=== PATIENT | male | born 1965 | race Caucasian/White ===

== ENCOUNTER 2020-04-19 14:23 | Inpatient (IN) | payer MEDICAID, OTHER ==
[~2020-04-19] VITALS: Ht 177.8 cm; Wt 113.2 kg
[2020-04-19 15:17] LABS: BASO # 0.1 x10^3/uL (0.0-0.2); BASO % 1 % (0-3); EOS # 0.3 x10^3/uL (0.0-0.7); EOS % 3 % (0-3); HEMATOCRIT 45.8 % (39.0-53.0); HEMOGLOBIN 14.7 g/dL (13.0-17.5); LYMPH # 1.5 x10^3/uL (1.0-4.8); LYMPH % 18 % (24-48); MEAN CORPUSCULAR HEMOGLOBIN 27 pg (25-35); MEAN CORPUSCULAR HGB CONC 32 g/dL (31-37); MEAN CORPUSCULAR VOLUME 85 fL (79-100); MONO % 12 % (0-9); NEUT # 5.6 x10^3/uL (1.8-7.7); NEUT % 66 % (31-73); PLATELET COUNT 300 x10^3/uL (140-400); RED BLOOD COUNT 5.42 x10^6/uL (4.30-5.70); RED CELL DISTRIBUTION WIDTH 15.2 % (11.5-14.5); WHITE BLOOD COUNT 8.5 x10^3/uL (4.0-11.0)
--- NOTE | 2020-04-19 15:19 | RAD ---
AP chest. HISTORY: Short of air AP view was taken of the chest. Heart is enlarged. There is no effusion. There is linear atelectasis in the left midlung. There are no other confluent infiltrates. IMPRESSION: 1. Cardiomegaly. 2. Linear atelectasis. 3. No other infiltrates. Electronically signed by: Horacio David MD (04/19/2020 3:16 PM) [facility]
[2020-04-19 15:26] LABS: CALCIUM 9.1 mg/dL (8.5-10.1); CREATININE 1.1 mg/dL (0.7-1.3); GFR 69.8; POTASSIUM 4.3 mmol/L (3.5-5.1)
[2020-04-19 15:33] LABS: ALBUMIN 3.6 g/dL (3.4-5.0); ALBUMIN/GLOBULIN RATIO 0.8 (1.0-1.7); MAGNESIUM 2.1 mg/dL (1.8-2.4); TOTAL BILIRUBIN 0.6 mg/dL (0.2-1.0); TOTAL PROTEIN 8.2 g/dL (6.4-8.2)
--- NOTE | 2020-04-19 15:33 | PHYS DOC ---
Past Medical History Past Medical History: Hypertension Past Surgical History: Other Additional Past Surgical Histo: UTI SURGERY, Smoking Status: Current Every Day Smoker Alcohol Use: Occasionally General Adult EDM: Chief Complaint: LOWER EXTREMITY SWELLING HPI: HPI: Patient is a 54 year old male with history of hypertension presented to ER today for evaluation of bilateral lower extremity swelling that spreading up to his inner thigh and abdomen area over 10 days. Patient complained of trouble breathing when he laid down flat on his back, symptom is exacerbated by exertion or physical activity. He could not sleep in his bed because of shortness of air. Patient denies any cough or fever. Patient denies any chest pain, no history of heart disease. Patient denies any abdominal pain, no nausea vomiting. Patient denies history of blood clot disorder. Patient denies any recent travel or operation. Patient denies being exposed to anybody who tested positive for COVID-19. Review of Systems: Review of Systems: Constitutional: Denies fever or chills. [] Eyes: Denies change in visual acuity. [] HENT: Denies nasal congestion or sore throat. [] Respiratory: Denies cough, positive for shortness of breath. [] Cardiovascular: Denies chest pain or edema. [] GI: Denies abdominal pain, nausea, vomiting, bloody stools or diarrhea. Positive for abdominal wall edema : Denies dysuria. [] Musculoskeletal: Denies back pain or joint pain. Positive for bilateral lower extremity swelling Integument: Denies rash. [] Neurologic: Denies headache, focal weakness or sensory changes. [] Endocrine: Denies polyuria or polydipsia. [] Lymphatic: Denies swollen glands. [] Psychiatric: Denies depression or anxiety. [] Heart Score: Risk Factors: Risk Factors: DM, Current or recent (<one month) smoker, HTN, HLP, family history of CAD, obesity. Risk Scores: Score 0 - 3: 2.5% MACE over next 6 weeks - Discharge Home Score 4 - 6: 20.3% MACE over next 6 weeks - Admit for Clinical Observation Score 7 - 10: 72.7% MACE over next 6 weeks - Early Invasive Strategies Allergies: Allergies: Allergies Coded Allergies Type Severity Reaction Last Updated Verified lisinopril Allergy Severe SWELLING 04/19/20 Yes Physical Exam: PE: Constitutional: Well developed, well nourished, no acute distress, non-toxic appearance. [] HENT: Normocephalic, atraumatic, bilateral external ears normal, oropharynx moist, no oral exudates, nose normal. [] Eyes: PERRLA, EOMI, conjunctiva normal, no discharge. [] Neck: Normal range of motion, no tenderness, supple, no stridor. [] Cardiovascular:Heart rate regular rhythm, no murmur [] Lungs & Thorax: Bilateral breath sounds with rales at lung bases, tachypnic Abdomen: Bowel sounds normal, soft, no tenderness, no masses, no pulsatile masses. Abdominal wall edema diffusely Skin: Warm, dry, no erythema, no rash. [] Back: No tenderness, no CVA tenderness. [] Extremities: No tenderness, no cyanosis, no clubbing, ROM intact, bilateral lower extremity edema, pitting edema, 3+ Neurologic: Alert and oriented X 3, normal motor function, normal sensory function, no focal deficits noted. [] Psychologic: Affect normal, judgement normal, mood normal. [] Current Patient Data: Labs: Laboratory Tests Test 04/19/20 14:54 Sodium Level 141 mmol/L (136-145) Potassium Level 4.3 mmol/L (3.5-5.1) Chloride Level 106 mmol/L (98-107) Carbon Dioxide Level 25 mmol/L (21-32) Anion Gap 10 (6-14) Blood Urea Nitrogen 19 mg/dL (8-26) Creatinine 1.1 mg/dL (0.7-1.3) Estimated GFR (Cockcroft-Gault) 69.8 BUN/Creatinine Ratio 17 (6-20) Glucose Level 119 mg/dL (70-99) H Calcium Level 9.1 mg/dL (8.5-10.1) Magnesium Level Pending Total Bilirubin Pending Aspartate Amino Transferase (AST) Pending Alanine Aminotransferase (ALT) Pending Alkaline Phosphatase Pending Total Protein Pending Albumin Pending Albumin/Globulin Ratio Pending Laboratory Tests 04/19/20 14:54 Vital Signs: Vital Signs Date Time Temp Pulse Resp B/P (MAP) Pulse Ox O2 Delivery O2 Flow Rate FiO2 04/19/20 14:38 98.3 100 24 176/115 (135) 98 Room Air 98.3 EKG: EKG: EKG was done at 1513, heart rate of 94 bpm, sinus rhythm, no ST segment elevation. Radiology/Procedures: Radiology/Procedures: [facility] [address] [place] [address] IMAGING REPORT Signed PATIENT: FRANKIE SCOTT ACCOUNT: [id number] : 1965 LOCATION: ER AGE: 54 SEX: M EXAM STATUS: PRE ER ORD. PHYSICIAN: SUNNY COURTNEY DO REASON: soa PROCEDURE: CHEST AP ONLY AP chest. HISTORY: Short of air AP view was taken of the chest. Heart is enlarged. There is no effusion. There is linear atelectasis in the left midlung. There are no other confluent infiltrates. IMPRESSION: 1. Cardiomegaly. 2. Linear atelectasis. 3. No other infiltrates. Electronically signed by: Horacio Davdi MD (04/19/2020 3:16 PM) [facility] DICTATED and SIGNED BY: HORACIO DAVID MD DATE: 04/19/20 [id number] [place] [address] IMAGING REPORT Signed PATIENT: FRANKIE SCOTT ACCOUNT: [id number] : 1965 LOCATION: ER AGE: 54 SEX: M EXAM STATUS: REG ER ORD. PHYSICIAN: SUNNY COURTNEY DO REASON: legs swelling and pain PROCEDURE: VENOUS LOWER EXT BILATERAL Ultrasound venous system of the legs 04/19/2020. Reason for exam: Pain and swelling. Color Doppler and spectral waveform analysis was performed along with real-time grayscale technique. The deep veins of both lower extremity show normal compressibility and normal Doppler flow and augmentation of flow extending from the common femoral segment to the popliteal segment. The visualized calf veins also appear normal. IMPRESSION: No evidence of DVT. Electronically signed by: Edu Celeste Jr., MD (04/19/2020 5:21 PM) [facility] DICTATED and SIGNED BY: EDU CELESTE Jr, MD DATE: 04/19/20 1451 Course & Med Decision Making: Course & Med Decision Making Pertinent Labs and Imaging studies reviewed. (See chart for details) Patient is a 54-year-old male who presented to ER due to bilateral lower extremity swelling that spread to her abdomen area, having trouble breathing with exertion, not able to sleep in his bed due to having trouble breathing. Patient is suspected to have acute pulmonary edema, his oxygen saturation is about 92% on room air tachypneic, patient was given 40 mg Lasix IV, he had been diuresis well in the ER but his oxygen saturation is still low in the 92-94 % on room air. Patient will need to be admitted to hospital for cardiology evaluation with echocardiogram. Discussed with Dr. Salinas who agreed to admit the patient. Dragon Disclaimer: Dragon Disclaimer: This electronic medical record was generated, in whole or in part, using a voice recognition dictation system. Departure Departure Impression: Primary Impression: Anasarca Additional Impression: Acute dyspnea Disposition: ADMITTED INPATIENT Admitting Physician: CRYSTAL (Dr. Villatoro) Condition: IMPROVED Justicifation of Admission Dx: Justifications for Admission: Justification of Admission Dx: N/A SUNNY COURTNEY DO Apr 19, 2020 15:33
[2020-04-19 15:43] LABS: PROTHROMBIN TIME PATIENT 14.7 SEC (11.7-14.0)
[2020-04-19] MEDS ORDERED: FUROSEMIDE 40 MG/4 ML VIAL. IVP ONE (16:00)
--- NOTE | 2020-04-19 17:23 | RAD ---
Ultrasound venous system of the legs 04/19/2020. Reason for exam: Pain and swelling. Color Doppler and spectral waveform analysis was performed along with real-time grayscale technique. The deep veins of both lower extremity show normal compressibility and normal Doppler flow and augmentation of flow extending from the common femoral segment to the popliteal segment. The visualized calf veins also appear normal. IMPRESSION: No evidence of DVT. Electronically signed by: Nicholas Celeste Jr., MD (04/19/2020 5:21 PM) [facility]
[2020-04-19] MEDS ORDERED: ONDANSETRON PF 4 MG/2 ML VIAL. IV PRN (18:00)
[2020-04-19 18:35] VITALS: BP 166/124
[2020-04-19] MEDS ORDERED: ASPI325T8 PO (18:47)
[2020-04-19] MEDS ORDERED: LOSA-73 PO (18:47)
[2020-04-19 19:00] VITALS: BP 162/102
[2020-04-19] MEDS ORDERED: METO-247 PO (22:49)
[2020-04-19 23:00] VITALS: BP 160/112
[2020-04-20] MEDS: ZOLPIDEM 5 MG TABLET. PO PRN ×2 (00:36→21:12)
[2020-04-20 03:00] VITALS: BP 168/113
[2020-04-20 07:00] VITALS: BP 156/116
[2020-04-20] MEDS ORDERED: ONDANSETRON PF 4 MG/2 ML VIAL. IV PRN (07:45)
--- NOTE | 2020-04-20 07:45 | PDOC1 ---
History and Physical Date of Admission Date of Admission DATE: 04/20/20 TIME: 07:33 Identification/Chief Complaint Chief Complaint Leg swelling Source Source: Patient History of Present Illness History of Present Illness Mr Zuñiga is a 54 yo M w/ PMHx HTN who presented to ER due to bilateral lower extremity swelling that spread to his abdominal area, having trouble breathing with exertion, not able to sleep in his bed due to having trouble breathing. Symptoms are progressive over the past 10 days prior to ED presentation. Patient is suspected to have acute pulmonary edema, his oxygen saturation is about 92% on room air tachypneic, patient was given 40 mg Lasix IV, he had been diuresis well in the ER but his oxygen saturation is still low in the 92-94 % on room air. Labs significant for INR 1.2, glucose 119, BNP 1171, troponin 0 0.033. Blood pressure 136/125. EKG appears to have heart rate of 94 bpm, sinus rhythm, no ST segment elevation. CXR revealed cardiomegaly and bilateral atelectasis, bilateral venous Dopplers did not reveal any DVT. On further review his significant other notes that he did have a cardiology e valuation at this time in 2019 with [employer] through [facility] and had an echocardiogram at [facility] that showed a PFO with [id number] shunt, no no active shunting on bubble study and known reduced ejection fraction. He was given a prescription for Chantix at that time and metoprolol 100 mg XL and losartan 50 mg daily and was planning on follow-up in the near future. Patient admitted to hospital for cardiology evaluation and further treatment. Past Medical History Cardiovascular: HTN GI: GERD Past Surgical History Past Surgical History: Other (Urologic surgery) Family History Family History: Coronary Artery Disease, High Cholestrol, Hypertension Social History Smoke: 1 pack per day ALCOHOL: rare Drugs: None Current Problem List Problem List Problems Medical Problems: (1) Acute dyspnea Status: Acute (2) Anasarca Status: Acute Current Medications Current Medications Current Medications Furosemide (Lasix) 40 mg 1X ONCE IVP Last administered on 04/19/20at 16:00; Start 04/19/20 at 16:00; Stop 04/19/20 at 16:01; Status DC Ondansetron HCl (Zofran) 4 mg PRN Q8HRS PRN IV NAUSEA/VOMITING; Start 04/19/20 at 18:00; Stop 04/20/20 at 17:59 Zolpidem Tartrate (Ambien) 5 mg PRN QHS PRN PO INSOMNIA Last administered on 04/20/20at 00:36; Start 04/20/20 at 00:30 Active Scripts Active Reported Metoprolol Succinate ( Xl ) (Metoprolol Succinate) 100 Mg Tab.er.24h 1 Tab PO DAILY Aspirin 325 Mg Tablet 1 Tab PO DAILY Losartan Potassium 50 Mg Tablet 100 Mg PO DAILY Allergies Allergies: Coded Allergies: lisinopril (Verified Allergy, Severe, SWELLING, 04/19/20) ROS General: YES: Fatigue, Malaise; No: Chills, Night Sweats, Appetite, Other PSYCHOLOGICAL ROS: YES: Anxiety; No: Behavioral Disorder, Concentration difficultie, Decreased libido, Depression, Disorientation, Hallucinations, Hostility, Irritablity, Memory difficulties, Mood Swings, Obsessive thoughts, Physical abuse, Sexual abuse, Sleep disturbances, Suicidal ideation, Other Eyes: No Blurry vision, No Decreased vision, No Double vision, No Dry eyes, No Excessive tearing, No Eye Pain, No Itchy Eyes, No Loss of vision, No Photophobia, No Scotomata, No Uses contacts, No Uses glasses, No Other HEENT: No: Heacaches, Visual Changes, Hearing change, Nasal congestion, Nasal discharge, Oral lesions, Sinus pain, Sore Throat, Epistaxis, Sneezing, Snoring, Tinnitus, Vertigo, Vocal changes, Other ALLERGY AND IMMUNOLOGY: No: Hives, Insect Bite Sensitivity, Itchy/Watery Eyes, Nasal Congestion, Post Nasal Drip, Seasonal Allergies, Other Hematological and Lymphatic: No: Bleeding Problems, Blood Clots, Blood Transfusions, Brusing, Night Sweats, Pallor, Swollen Lymph Nodes, Other ENDOCRINE: No: Breast Changes, Galactorrhea, Hair Pattern Changes, Hot Flashes, Malaise/lethargy, Mood Swings, Palpitations, Polydipsia/polyuria, Skin Changes, Temperature Intolerance, Unexpected Weight Changes, Other Respiratory: YES: Orthopnea, Shortness of breath, SOB with excertion, Tachypnea ; No: Cough, Hemoptysis, Pleuritic Pain, Sputum Changes, Stridor, Wheezing, Other Cardiovascular: yes Orthopnea, yes Paroxysmal Noc. Dyspnea, yes Edema; No Chest Pain, No Palpitations, No Lt Headedness, No Other Gastrointestinal: No Nausea, No Vomiting, No Abdominal Pain, No Diarrhea, No Constipation, No Melena, No Hematochezia, No Other Genitourinary: No Dysuria, No Frequency, No Incontinence, No Hematuria, No Retention, No Discharge, No Urgency, No Pain, No Flank Pain, No Other, No , No , No , No , No , No , No Musculoskeletal: No Gait Disturbance, No Joint Pain, No Joint Stiffness, No Joint Swelling, No Muscle Pain, No Muscular Weakness, No Pain In:, No Swelling In:, No Other Neurological: No Behavorial Changes, No Bowel/Bladder ControlChng, No Confusion, No Dizziness, No Gait Disturbance, No Headaches, No Impaired Coord/balance, No Memory Loss, No Numbness/Tingling, No Seizures, No Speech Problems, No Tremors, No Visual Changes, No Weakness, No Other Skin: No Dry Skin, No Eczema, No Hair Changes, No Lumps, No Mole Changes, No Mottling, No Nail Changes, No Pruritus, No Rash, No Skin Lesion Changes, No Other, No Acne Physical Exam General: Alert, Oriented X3, Cooperative, mild distress HEENT: Atraumatic, PERRLA, EOMI, Mucous membr. moist/pink Lungs: Normal air movement, Other (bibasilar crackles) Heart: S1S2, RRR, no thrills, no rubs, no gallops, no murmurs Abdomen: Normal bowel sounds, Soft, No tenderness, No hepatosplenomegaly, No masses Rectal Exam: not examined Extremities: No clubbing, No cyanosis, Normal pulses, No tenderness/swelling, Other (2+ edema) Skin: No rashes, No breakdown, No significant lesion Neuro: Normal gait, Normal speech, Strength at 5/5 X4 ext, Normal tone, Sensation intact, Cranial nerves 3-12 NL, Reflexes 2+ Psych/Mental Status: Mental status NL, Mood NL Vitals Vitals Vital Signs Date Time Temp Pulse Resp B/P (MAP) Pulse Ox O2 Delivery O2 Flow Rate FiO2 04/20/20 07:00 98.1 103 18 156/116 (129) 97 Room Air 98.1 Labs Labs Laboratory Tests Test 04/19/20 14:54 White Blood Count 8.5 x10^3/uL (4.0-11.0) Red Blood Count 5.42 x10^6/uL (4.30-5.70) Hemoglobin 14.7 g/dL (13.0-17.5) Hematocrit 45.8 % (39.0-53.0) Mean Corpuscular Volume 85 fL (79-100) Mean Corpuscular Hemoglobin 27 pg (25-35) Mean Corpuscular Hemoglobin Concent 32 g/dL (31-37) Red Cell Distribution Width 15.2 % (11.5-14.5) Platelet Count 300 x10^3/uL (140-400) Neutrophils (%) (Auto) 66 % (31-73) Lymphocytes (%) (Auto) 18 % (24-48) Monocytes (%) (Auto) 12 % (0-9) Eosinophils (%) (Auto) 3 % (0-3) Basophils (%) (Auto) 1 % (0-3) Neutrophils # (Auto) 5.6 x10^3/uL (1.8-7.7) Lymphocytes # (Auto) 1.5 x10^3/uL (1.0-4.8) Monocytes # (Auto) 1.0 x10^3/uL (0.0-1.1) Eosinophils # (Auto) 0.3 x10^3/uL (0.0-0.7) Basophils # (Auto) 0.1 x10^3/uL (0.0-0.2) Prothrombin Time 14.7 SEC (11.7-14.0) Prothromb Time International Ratio 1.2 (0.8-1.1) Activated Partial Thromboplast Time 31 SEC (24-38) Sodium Level 141 mmol/L (136-145) Potassium Level 4.3 mmol/L (3.5-5.1) Chloride Level 106 mmol/L (98-107) Carbon Dioxide Level 25 mmol/L (21-32) Anion Gap 10 (6-14) Blood Urea Nitrogen 19 mg/dL (8-26) Creatinine 1.1 mg/dL (0.7-1.3) Estimated GFR (Cockcroft-Gault) 69.8 BUN/Creatinine Ratio 17 (6-20) Glucose Level 119 mg/dL (70-99) Calcium Level 9.1 mg/dL (8.5-10.1) Magnesium Level 2.1 mg/dL (1.8-2.4) Total Bilirubin 0.6 mg/dL (0.2-1.0) Aspartate Amino Transf (AST/SGOT) 48 U/L (15-37) Alanine Aminotransferase (ALT/SGPT) 39 U/L (16-63) Alkaline Phosphatase 85 U/L (46-116) Troponin I Quantitative 0.033 ng/mL (0.000-0.055) GD-Ygr-M-Type Natriuretic Peptide 1171 pg/mL (0-124) Total Protein 8.2 g/dL (6.4-8.2) Albumin 3.6 g/dL (3.4-5.0) Albumin/Globulin Ratio 0.8 (1.0-1.7) Laboratory Tests Test 04/19/20 14:54 White Blood Count 8.5 x10^3/uL (4.0-11.0) Red Blood Count 5.42 x10^6/uL (4.30-5.70) Hemoglobin 14.7 g/dL (13.0-17.5) Hematocrit 45.8 % (39.0-53.0) Mean Corpuscular Volume 85 fL (79-100) Mean Corpuscular Hemoglobin 27 pg (25-35) Mean Corpuscular Hemoglobin Concent 32 g/dL (31-37) Red Cell Distribution Width 15.2 % (11.5-14.5) Platelet Count 300 x10^3/uL (140-400) Neutrophils (%) (Auto) 66 % (31-73) Lymphocytes (%) (Auto) 18 % (24-48) Monocytes (%) (Auto) 12 % (0-9) Eosinophils (%) (Auto) 3 % (0-3) Basophils (%) (Auto) 1 % (0-3) Neutrophils # (Auto) 5.6 x10^3/uL (1.8-7.7) Lymphocytes # (Auto) 1.5 x10^3/uL (1.0-4.8) Monocytes # (Auto) 1.0 x10^3/uL (0.0-1.1) Eosinophils # (Auto) 0.3 x10^3/uL (0.0-0.7) Basophils # (Auto) 0.1 x10^3/uL (0.0-0.2) Prothrombin Time 14.7 SEC (11.7-14.0) Prothromb Time International Ratio 1.2 (0.8-1.1) Activated Partial Thromboplast Time 31 SEC (24-38) Sodium Level 141 mmol/L (136-145) Potassium Level 4.3 mmol/L (3.5-5.1) Chloride Level 106 mmol/L (98-107) Carbon Dioxide Level 25 mmol/L (21-32) Anion Gap 10 (6-14) Blood Urea Nitrogen 19 mg/dL (8-26) Creatinine 1.1 mg/dL (0.7-1.3) Estimated GFR (Cockcroft-Gault) 69.8 BUN/Creatinine Ratio 17 (6-20) Glucose Level 119 mg/dL (70-99) Calcium Level 9.1 mg/dL (8.5-10.1) Magnesium Level 2.1 mg/dL (1.8-2.4) Total Bilirubin 0.6 mg/dL (0.2-1.0) Aspartate Amino Transf (AST/SGOT) 48 U/L (15-37) Alanine Aminotransferase (ALT/SGPT) 39 U/L (16-63) Alkaline Phosphatase 85 U/L (46-116) Troponin I Quantitative 0.033 ng/mL (0.000-0.055) BI-Mmg-C-Type Natriuretic Peptide 1171 pg/mL (0-124) Total Protein 8.2 g/dL (6.4-8.2) Albumin 3.6 g/dL (3.4-5.0) Albumin/Globulin Ratio 0.8 (1.0-1.7) Images Images CXR AP view: Heart is enlarged. There is no effusion. There is linear atelectasis in the left midlung. There are no other confluent infiltrates. IMPRESSION: 1. Cardiomegaly. 2. Linear atelectasis. 3. No other infiltrates. Ultrasound venous system of the legs 04/19/2020. Color Doppler and spectral waveform analysis was performed along with real-time grayscale technique. The deep veins of both lower extremity show normal compressibility and normal Doppler flow and augmentation of flow extending from the common femoral segment to the popliteal segment. The visualized calf veins also appear normal. IMPRESSION: No evidence of DVT. VTE Prophylaxis Ordered VTE Prophylaxis Devices: Yes VTE Pharmacological Prophylaxi: Yes Assessment/Plan Assessment/Plan A/P: Lower extremity edema multi-factorial possibly due to acute diastolic CHF, will consult cardiology continue IV Lasix continue beta-jayda check lipids HTN emergency - with acute CHF, restart home medications Dyspnea with acute CHF - improved after initiating IV diuresis Mild troponin elevation - 0.059. Likely type II demand ischemia. Will trend COPD - on prn albuterol Tobacco abuse - previously given chantix, he is trying to quit smoking FEN - Cardiac diet PPX - lovenox FULL CODE Dispo - inpatient Justicifation of Admission Dx: Justifications for Admission: Justification of Admission Dx: N/A SOURAV BAUTISTA MD Apr 20, 2020 07:45
[2020-04-20] MEDS: FUROSEMIDE 40 MG/4 ML VIAL. IVP SCH ×2 (08:02→15:39)
[2020-04-20] MEDS: ASPIRIN 325 MG TABLET PO SCH (08:08)
[2020-04-20] MEDS: METOPROLOL SUCC 24HR ER 100 MG TAB.ER.24H. PO SCH (08:09)
[2020-04-20] MEDS: LOSARTAN POTASSIUM 50 MG TABLET. PO SCH (08:09)
[2020-04-20] MEDS: ENOXAPARIN 40 MG/0.4 ML SYRINGE. SQ SCH (08:11)
[2020-04-20 08:55] LABS: ALBUMIN 3.6 g/dL (3.4-5.0); ALBUMIN/GLOBULIN RATIO 0.8 (1.0-1.7); CALCIUM 9.3 mg/dL (8.5-10.1); CREATININE 1.1 mg/dL (0.7-1.3); GFR 69.8; POTASSIUM 3.7 mmol/L (3.5-5.1); TOTAL BILIRUBIN 0.9 mg/dL (0.2-1.0)
[2020-04-20 09:34] LABS: CHOLESTEROL/HDL RATIO 4.7
--- NOTE | 2020-04-20 09:40 | NUR ---
Patient's troponin went from 0.033 to 0.057. [facility] cardiology [employer] notified at 911.
--- NOTE | 2020-04-20 10:42 | PDOC2 ---
CARDIAC CONSULT DATE OF CONSULT Date of Consult DATE: 04/20/20 TIME: 10:33 REASON FOR CONSULT Reason for Consult: CHF REFERRING PHYSICIAN Referring Physician: Dr. Flores SOURCE Source: Chart review, Patient HISTORY OF PRESENT ILLNESS HISTORY OF PRESENT ILLNESS This is a 54 yo male who presented secondary to fluid retention, shortness of breath. Patient reports shortness of breath and lower extremity edema has been present for the last couple of weeks. Progressively worsening. Associated with orthopnea. No dizziness, diaphoresis, or chest pain. No recent illness/fevers. Is feeling feeling s/p diuresis. PAST MEDICAL HISTORY Cardiovascular: HTN Pulmonary: COPD Musculoskeletal: Osteoarthritis PAST SURGICAL HISTORY Past Surgical History: No pertinent history FAMILY HISTORY Family History: Coronary Artery Disease (both mother and father ), Diabetes, Heart Disease SOCIAL HISTORY Smoke: 1 pack per day ALCOHOL: social Drugs: None Lives: with Family CURRENT MEDICATIONS CURRENT MEDICATIONS Current Medications Medications (Trade) Dose Ordered Sig/Ariana Route PRN Reason Start Time Stop Time Status Last Admin Dose Admin Furosemide (Lasix) 40 mg 1X ONCE IVP 04/19/20 16:00 04/19/20 16:01 DC 04/19/20 16:00 Zolpidem Tartrate (Ambien) 5 mg PRN QHS PRN PO INSOMNIA 04/20/20 00:30 04/20/20 00:36 Aspirin (David Aspirin) 325 mg DAILY PO 04/20/20 09:00 04/20/20 08:08 Losartan Potassium (Cozaar) 100 mg DAILY PO 04/20/20 09:00 04/20/20 08:09 Metoprolol Succinate (Toprol Xl) 100 mg DAILY PO 04/20/20 09:00 04/20/20 08:09 Furosemide (Lasix) 40 mg BID92 IVP 04/20/20 09:00 04/20/20 14:01 04/20/20 08:02 Enoxaparin Sodium (Lovenox 40mg Syringe) 40 mg Q24H SQ 04/20/20 08:00 04/20/20 08:11 ALLERGIES ALLERGIES: Coded Allergies: lisinopril (Verified Allergy, Severe, SWELLING, 04/19/20) ROS Review of System 14 point ROS conducted with pertinent positives noted above in HPI PHYSICAL EXAM General: Alert, Oriented X3, Cooperative, No acute distress HEENT: Atraumatic, Mucous membr. moist/pink Lungs: Other (bibasilar crackles ) Heart: Regular rate Abdomen: Soft, Other (ascites ) Extremities: Other (2+ bilateral LE edema ) Skin: No significant lesion Neuro: Normal speech, Sensation intact Psych/Mental Status: Mental status NL, Mood NL MUSCULOSKELETAL: No deformity VITALS/I&O VITALS/I&O: Vital Signs Date Time Temp Pulse Resp B/P (MAP) Pulse Ox O2 Delivery O2 Flow Rate FiO2 04/20/20 08:09 103 156/116 04/20/20 08:00 Nasal Cannula 2.0 04/20/20 07:00 98.1 18 97 98.1 I & O 04/19/20 04/19/20 04/20/20 15:00 23:00 07:00 Intake Total 200 ml Output Total 1750 ml 700 ml Balance -1750 ml -500 ml LABS Lab: Laboratory Tests Test 04/19/20 14:54 04/20/20 08:10 White Blood Count 8.5 x10^3/uL (4.0-11.0) Red Blood Count 5.42 x10^6/uL (4.30-5.70) Hemoglobin 14.7 g/dL (13.0-17.5) Hematocrit 45.8 % (39.0-53.0) Mean Corpuscular Volume 85 fL (79-100) Mean Corpuscular Hemoglobin 27 pg (25-35) Mean Corpuscular Hemoglobin Concent 32 g/dL (31-37) Red Cell Distribution Width 15.2 % (11.5-14.5) H Platelet Count 300 x10^3/uL (140-400) Neutrophils (%) (Auto) 66 % (31-73) Lymphocytes (%) (Auto) 18 % (24-48) L Monocytes (%) (Auto) 12 % (0-9) H Eosinophils (%) (Auto) 3 % (0-3) Basophils (%) (Auto) 1 % (0-3) Neutrophils # (Auto) 5.6 x10^3/uL (1.8-7.7) Lymphocytes # (Auto) 1.5 x10^3/uL (1.0-4.8) Monocytes # (Auto) 1.0 x10^3/uL (0.0-1.1) Eosinophils # (Auto) 0.3 x10^3/uL (0.0-0.7) Basophils # (Auto) 0.1 x10^3/uL (0.0-0.2) Prothrombin Time 14.7 SEC (11.7-14.0) H Prothrombin Time INR 1.2 (0.8-1.1) H Activated Partial Thromboplast Time 31 SEC (24-38) Sodium Level 141 mmol/L (136-145) 142 mmol/L (136-145) Potassium Level 4.3 mmol/L (3.5-5.1) 3.7 mmol/L (3.5-5.1) Chloride Level 106 mmol/L (98-107) 104 mmol/L (98-107) Carbon Dioxide Level 25 mmol/L (21-32) 27 mmol/L (21-32) Anion Gap 10 (6-14) 11 (6-14) Blood Urea Nitrogen 19 mg/dL (8-26) 21 mg/dL (8-26) Creatinine 1.1 mg/dL (0.7-1.3) 1.1 mg/dL (0.7-1.3) Estimated GFR (Cockcroft-Gault) 69.8 69.8 BUN/Creatinine Ratio 17 (6-20) 19 (6-20) Glucose Level 119 mg/dL (70-99) H 113 mg/dL (70-99) H Calcium Level 9.1 mg/dL (8.5-10.1) 9.3 mg/dL (8.5-10.1) Magnesium Level 2.1 mg/dL (1.8-2.4) Total Bilirubin 0.6 mg/dL (0.2-1.0) 0.9 mg/dL (0.2-1.0) Aspartate Amino Transferase (AST) 48 U/L (15-37) H 36 U/L (15-37) Alanine Aminotransferase (ALT) 39 U/L (16-63) 31 U/L (16-63) Alkaline Phosphatase 85 U/L (46-116) 77 U/L (46-116) Troponin I Quantitative 0.033 ng/mL (0.000-0.055) 0.057 ng/mL (0.000-0.055) TF-Zfk-M-Type Natriuretic Peptide 1171 pg/mL (0-124) H Total Protein 8.2 g/dL (6.4-8.2) 8.0 g/dL (6.4-8.2) Albumin 3.6 g/dL (3.4-5.0) 3.6 g/dL (3.4-5.0) Albumin/Globulin Ratio 0.8 (1.0-1.7) L 0.8 (1.0-1.7) L Triglycerides Level 65 mg/dL (0-150) Cholesterol Level 127 mg/dL (0-200) LDL Cholesterol, Calculated 87 mg/dL (0-100) VLDL Cholesterol, Calculated 13 mg/dL (0-40) Non-HDL Cholesterol Calculated 100 mg/dL (0-129) HDL Cholesterol 27 mg/dL (40-60) L Cholesterol/HDL Ratio 4.7 Thyroid Stimulating Hormone (TSH) 3.595 uIU/mL (0.358-3.74) Laboratory Tests 04/19/20 14:54 Laboratory Tests 04/19/20 14:54 04/20/20 08:10 ASSESSMENT/PLAN ASSESSMENT/PLAN 1. Acute respiratory failure with acute CHF 2. Acute on chronic possibly combined systolic/diastolic CHF 3. Mild troponin elevation; highest 0.059. Most probably type II, demand ischemia. CP free 4. Hypertension 5. COPD 6. Tobaccoism; discussed/encouraged cessation Recommends Diuresis with monitoring of renal function Trend troponin Echo to assess LV systolic function ASA Lipids, TSH Will need further ischemic evaluation. Outpatient vs inpatient pending echo results Supportive care RAZ SILVERIO APRN Apr 20, 2020 10:42
[2020-04-20 11:00] VITALS: BP 153/105
--- NOTE | 2020-04-20 11:59 | NUR ---
SS following for discharge planning. SS reviewed pt chart and discussed with pt RN. Pt is from home and is currently on room air. ECHO ordered. Pt on IV Lasix. SS will continue to follow for discharge planning.
[2020-04-20] MEDS ORDERED: VARE0.5T PO (13:45)
[2020-04-20] MEDS ORDERED: MULT-245 PO (13:45)
[2020-04-20] MEDS ORDERED: PANT40TA77 PO (13:45)
[2020-04-20 15:00] VITALS: BP 135/98
[2020-04-20] MEDS ORDERED: PERFLUTREN PROTEIN-A MICROSPHR 0.22 MG/ML 3 ML VIAL. IV ONE ×2 (15:01→16:00)
--- NOTE | 2020-04-20 15:23 | EKG ---
[facility] [address] [place] [address] Test Date: 2020-04-19 Test Time: 15:13:18 Pat Name: FRANKIE SCOTT Department: Room: Gender: M [employer]: : 1965 Requested By: SUNNY COURTNEY Order Number: [id number] Reading MD: Measurements Intervals [place] Rate: 94 P: 49 OK: 210 QRS: 73 QRSD: 102 T: 55 QT: 394 QTc: 499 Interpretive Statements SINUS ARRHYTHMIA PROLONGED OK INTERVAL LEFT ATRIAL ABNORMALITY LOW LIMB LEAD VOLTAGE PROLONGED QT ABNORMAL ECG RI6.01 No previous ECG available for comparison
--- NOTE | 2020-04-20 16:57 | NUR ---
Patient had was in vtach for approximately 26 seconds. Patient had just used the urinal when this happened. Hannah, cardiology RN IMMUNOLOGY notified. Order for Mg to be checked & replaced if less than 2.0. Will continue to monitor.
[2020-04-20 17:37] LABS: AMPHETAMINE/METHAMPHETAMINE NEG (NEG); BARBITURATES NEG (NEG); BENZODIAZEPINES NEG (NEG); CANNABINOIDS NEG (NEG); COCAINE NEG (NEG); METHADONE NEG (NEG); OPIATES NEG (NEG); PHENCYCLIDINE NEG (NEG)
[2020-04-20 19:25] VITALS: BP 136/103
[2020-04-20] MEDS ORDERED: ATORVASTATIN CALCIUM 10 MG TABLET. PO SCH (21:00)
[2020-04-20 23:10] VITALS: BP 143/105
[2020-04-21] VITALS (17 sets, daily range): BP systolic 133–181; BP diastolic 82–130
[2020-04-21 02:08] LABS: HEMOGLOBIN A1C 5.9 % (4.8-5.6)
[2020-04-21 05:35] LABS: CREATININE 0.9 mg/dL (0.7-1.3); GFR 87.9; MAGNESIUM 1.9 mg/dL (1.8-2.4); POTASSIUM 3.6 mmol/L (3.5-5.1)
--- NOTE | 2020-04-21 07:41 | PDOC ---
[employer] NOTE Date of Service DOS: DATE: 04/21/20 TIME: 07:40 Chief Complaint Chief Complaint A/P: Lower extremity edema multi-factorial possibly due to acute diastolic CHF, will consult cardiology continue IV Lasix continue beta-jayda check lipids HTN emergency - with acute CHF, restart home medications Dyspnea with acute CHF - improved after initiating IV diuresis Mild troponin elevation - 0.059. Likely type II demand ischemia. Will trend COPD - on prn albuterol Tobacco abuse - previously given chantix, he is trying to quit smoking Prediabetes - A1c 5.9. Should be on metformin 5 mg twice daily therapy once his cardiac issues have been resolved. FEN - Cardiac diet PPX - lovenox FULL CODE Dispo - inpatient History of Present Illness History of Present Illness Mr Zuñiga is a 54 yo M w/ PMHx HTN who presented to ER due to bilateral lower extremity swelling that spread to his abdominal area, having trouble breathing with exertion, not able to sleep in his bed due to having trouble breathing. Symptoms are progressive over the past 10 days prior to ED presentation. Patient is suspected to have acute pulmonary edema, his oxygen saturation is about 92% on room air tachypneic, patient was given 40 mg Lasix IV, he had been diuresis well in the ER but his oxygen saturation is still low in the 92-94 % on room air. Labs significant for INR 1.2, glucose 119, BNP 1171, troponin 0 0.033. Blood pressure 136/125. EKG appears to have heart rate of 94 bpm, sinus rhythm, no ST segment elevation. CXR revealed cardiomegaly and bilateral atelectasis, bilateral venous Dopplers did not reveal any DVT. On further review his significant other notes that he did have a cardiology evaluation at this time in 2019 with [employer] through [facility] and had an echocardiogram at [facility] that showed a PFO with lbdh-hj-iiyrw shunt, no no active shunting on bubble study and known reduced ejection fraction. He was given a prescription for Chantix at that time and metoprolol 100 mg XL and losartan 50 mg daily and was planning on follow-up in the near future. Patient admitted to hospital for cardiology evaluation and further treatment. BP a bit better controlled, however his troponin continue to increase to 0.065 K3.6 today. N.p.o. for cardiac catheterization. Swelling has improved no chest pain today. Vitals/I&O Vitals/I&O: Vital Signs Date Time Temp Pulse Resp B/P (MAP) Pulse Ox O2 Delivery O2 Flow Rate FiO2 04/21/20 03:10 97.9 60 20 135/95 (108) 97 Nasal Cannula 2.0 97.9 I & O 0 04/20/20 04/20/20 04/21/20 15:00 23:00 07:00 Intake Total 500 ml Output Total 2000 ml 2500 ml 600 ml Balance -2000 ml -2500 ml -100 ml Physical Exam General: Alert, Oriented X3, Cooperative, No acute distress Heart: Regular rate Abdomen: Soft, Other (ascites ) Extremities: Other (2+ bilateral LE edema ) Skin: No significant lesion Labs Labs: Laboratory Tests Test 04/20/20 08:10 04/20/20 12:23 04/20/20 16:30 04/21/20 04:20 Sodium Level 142 mmol/L (136-145) 142 mmol/L (136-145) Potassium Level 3.7 mmol/L (3.5-5.1) 3.6 mmol/L (3.5-5.1) Chloride Level 104 mmol/L (98-107) 104 mmol/L (98-107) Carbon Dioxide Level 27 mmol/L (21-32) 30 mmol/L (21-32) Anion Gap 11 (6-14) 8 (6-14) Blood Urea Nitrogen 21 mg/dL (8-26) 21 mg/dL (8-26) Creatinine 1.1 mg/dL (0.7-1.3) 0.9 mg/dL (0.7-1.3) Estimated GFR (Cockcroft-Gault) 69.8 87.9 BUN/Creatinine Ratio 19 (6-20) Glucose Level 113 mg/dL (70-99) 106 mg/dL (70-99) Hemoglobin A1c 5.9 % (4.8-5.6) Calcium Level 9.3 mg/dL (8.5-10.1) 9.0 mg/dL (8.5-10.1) Total Bilirubin 0.9 mg/dL (0.2-1.0) Aspartate Amino Transf (AST/SGOT) 36 U/L (15-37) Alanine Aminotransferase (ALT/SGPT) 31 U/L (16-63) Alkaline Phosphatase 77 U/L (46-116) Troponin I Quantitative 0.057 ng/mL (0.000-0.055) 0.053 ng/mL (0.000-0.055) 0.065 ng/mL (0.000-0.055) Total Protein 8.0 g/dL (6.4-8.2) Albumin 3.6 g/dL (3.4-5.0) Albumin/Globulin Ratio 0.8 (1.0-1.7) Triglycerides Level 65 mg/dL (0-150) Cholesterol Level 127 mg/dL (0-200) LDL Cholesterol, Calculated 87 mg/dL (0-100) VLDL Cholesterol, Calculated 13 mg/dL (0-40) Non-HDL Cholesterol Calculated 100 mg/dL (0-129) HDL Cholesterol 27 mg/dL (40-60) Cholesterol/HDL Ratio 4.7 Thyroid Stimulating Hormone (TSH) 3.595 uIU/mL (0.358-3.74) Magnesium Level 2.0 mg/dL (1.8-2.4) 1.9 mg/dL (1.8-2.4) Urine Opiates Screen Neg (NEG) Urine Methadone Screen Neg (NEG) Urine Barbiturates Neg (NEG) Urine Phencyclidine Screen Neg (NEG) Urine Amphetamine/Methamphetamine Neg (NEG) Urine Benzodiazepines Screen Neg (NEG) Urine Cocaine Screen Neg (NEG) Urine Cannabinoids Screen Neg (NEG) Urine Ethyl Alcohol Neg (NEG) Assessment and Plan Assessmemt and Plan Problems Medical Problems: (1) Acute dyspnea Status: Acute (2) Anasarca Status: Acute Comment Review of Relevant I have reviewed the following items ankit (where applicable) has been applied. Medications: Current Medications Medications (Trade) Dose Ordered Sig/Ariana Route PRN Reason Start Time Stop Time Status Last Admin Dose Admin Aspirin (David Aspirin) 325 mg DAILY PO 04/20/20 09:00 04/20/20 08:08 Losartan Potassium (Cozaar) 100 mg DAILY PO 04/20/20 09:00 04/20/20 08:09 Metoprolol Succinate (Toprol Xl) 100 mg DAILY PO 04/20/20 09:00 04/20/20 08:09 Furosemide (Lasix) 40 mg BID92 IVP 04/20/20 09:00 04/20/20 14:01 DC 04/20/20 15:39 Atorvastatin Calcium (Lipitor) 10 mg QHS PO 04/20/20 21:00 04/20/20 21:12 Enoxaparin Sodium (Lovenox 40mg Syringe) 40 mg Q24H SQ 04/20/20 08:00 04/20/20 08:11 Perflutren Protein Type A Microsphe (Optison) 0.66 mg 1X ONCE IV 04/20/20 16:00 04/20/20 16:01 DC 04/20/20 16:06 Justicifation of Admission Dx: Justifications for Admission: Justification of Admission Dx: N/A SOURAV BAUTISTA MD Apr 21, 2020 07:40
[2020-04-21] MEDS: ENOXAPARIN 40 MG/0.4 ML SYRINGE. SQ SCH (08:00)
[2020-04-21] MEDS: ASPIRIN 325 MG TABLET PO SCH (08:14)
[2020-04-21] MEDS: LOSARTAN POTASSIUM 50 MG TABLET. PO SCH (08:16)
[2020-04-21] MEDS: METOPROLOL SUCC 24HR ER 100 MG TAB.ER.24H. PO SCH (08:16)
[2020-04-21] MEDS ORDERED: MAGNESIUM SULFATE 1GM 100 ML IV ONE (09:00)
[2020-04-21] MEDS ORDERED: POTASSIUM CHLORIDE 20 MEQ TABLET.ER. PO ONE (09:00)
--- NOTE | 2020-04-21 09:03 | NUR ---
SS following up with discharge planning. SS reviewed pt chart and discussed with pt RN. Pt having heart cath today. Discharge plan is to home when medically ready. SS will continue to follow for discharge planning.
--- NOTE | 2020-04-21 09:45 | CARD ---
MR#: [id number] Date of Study: 04/20/2020 Ordering Physician: RAZ SILVERIO, Referring Physician: RAZ SILVERIO, Tech: Josefina Rousseau SANDRA APPROVED REPORT EXAM: Two-dimensional and M-mode echocardiogram with Doppler and color Doppler. Other Information Quality : Technically Limited Technically limited study due to body habitus. INDICATION Congestive Heart Failure Elevated Troponin Echo Enhancing Agent Agent/Amount Used: Optison 1mL 2D DIMENSIONS RVDd3.8 (2.9-3.5cm)Left Atrium(2D)5.2 (1.6-4.0cm) IVSd1.4 (0.7-1.1cm)Aortic Root(2D)3.4 (2.0-3.7cm) LVDd6.7 (3.9-5.9cm)LVOT Diameter2.2 (1.8-2.4cm) PWd1.5 (0.7-1.1cm)LVDs6.3 (2.5-4.0cm) FS (%) 5.1 %SV25.7 ml LVEF(%)11.3 (>50%) M-Mode DIMENSIONS LVDd7.67 (4.0-5.6cm)MV EPSS2.2 (<0.5cm) FS (%) 26 %LVDs5.69 (2.0-3.8cm) ESV(Teich)159.2 mlLVEF(%)49 (>50%) Aortic Valve AoV Peak Ap.121.8cm/sAoV VTI17.4cm AO Peak GR.5.9mmHgLVOT Peak Ap.129.7cm/s AO Mean GR.4mmHgAVA (VMAX)4.10cm2 ALEE (VTI)3.90cm2 Mitral Valve MV E Wsrpeusz629.5cm/sMV DECEL AFXR481yj MV A Fegmpcme71.9cm/sE/A Ratio2.2 Tricuspid Valve TR P. Dlslrefk439jp/sRAP EKFZVFVB92gsHk TR Peak Gr.82dqUuKWBH77lpCp LEFT VENTRICLE The Left Ventricle is moderately dilated. There is mild to moderate concentric left ventricular hyper trophy. Left ventricle systolic function is severely impaired. The Ejection Fraction is 10-15%. There is severe global hypokinesis of the left ventricle. Transmitral Doppler flow pattern is Grade III-re versible restrictive diastolic dysfunction. RIGHT VENTRICLE The right ventricle is normal size. The right ventricular systolic function is normal. ATRIA The left atrium is moderately dilated. The right atrium is moderately dilated. The interatrial septum is intact with no evidence for an atrial septal defect or patent foramen ovale as noted on 2-D or Do ppler imaging. AORTIC VALVE The aortic valve is normal in structure and function. Doppler and Color Flow revealed mild aortic reg urgitation. There is no significant aortic valvular stenosis. MITRAL VALVE The mitral valve is calcified but opens well. There is no evidence of mitral valve prolapse. There is no mitral valve stenosis. Doppler and Color-flow revealed mild mitral regurgitation. TRICUSPID VALVE The tricuspid valve is normal in structure and function. Doppler and Color Flow revealed mild tricusp id regurgitation. There is moderate pulmonary hypertension. The PA pressure was estimated at 58 mmHg. There is no tricuspid valve stenosis. PULMONIC VALVE The pulmonary valve is normal in structure and function. Doppler and Color Flow revealed mild pulmoni c valvular regurgitation. There is no pulmonic valvular stenosis. GREAT VESSELS The aortic root is normal in size. The ascending aorta is mild to moderately dilated at 3.9 cm. The I VC is dilated and collapses <50% with inspiration. PERICARDIAL EFFUSION There is no evidence of significant pericardial effusion. Critical Notification Critical Value: No <Conclusion> Left ventricle systolic function is severely impaired. The Ejection Fraction is 10-15%. Mild aortic regurgitation. Mild mitral regurgitation. Mild tricuspid regurgitation. There is moderate pulmonary hypertension. The PA pressure was estimated at 58 mmHg. There is no evidence of significant pericardial effusion. Signed by : Shyam Arias, Electronically Approved : 04/21/2020 09:44:47
[2020-04-21] MEDS ORDERED: LIDOCAINE 1% Multi-Dose 20 ML VIAL. ONE (10:58)
[2020-04-21] MEDS ORDERED: IOHEXOL 300 MG/ML 100ML VIAL. ONE ×2 (10:58→11:53)
[2020-04-21] MEDS ORDERED: fentaNYL PF VIAL 100 MCG/2 ML VIAL ONE (11:18)
[2020-04-21] MEDS ORDERED: MIDAZOLAM HCL/PF 5 MG/5 ML VIAL. ONE (11:18)
--- NOTE | 2020-04-21 11:24 | PDOC ---
MODERATE SEDATION ASSESSMENT RISKS/ALTERNATIVES Risks/Alternatives Risks and alternatives of this type of sedation and procedure discussed with: RISK/ALTERNATIVES: Patient H & P ON CHART H & P H & P on chart and reviewed for co-morbid conditions and appropriate labs. H&P ON CHART: Yes STATUS PREG STATUS ASSESSED: N/A MEDS/ALLERGIES REVIEWED Meds/Allergies Reviewed Medications and Allergies including time and route of recently administered narcotics and sedatives. MEDS/ALLERGIES REVIEWED: Yes ASA RATING ASA RATING: III AIRWAY ASSESSMENT Airway Assessment Airway patency, oral function limitations, presence of caps, crowns, dentures, partials, and ability to extend neck assessed. AIRWAY ASSESSMENT: Yes MALLAMPATI SCORE MALLAMPATI SCORE: II PRE-SEDATION ASSESSMENT PRE-SEDATION ASSESSMENT: Yes SALOME CHRISTIAN MD Apr 21, 2020 11:24
[2020-04-21] MEDS ORDERED: FUROSEMIDE 100 MG/10 ML VIAL. ONE (11:33)
[2020-04-21] MEDS ORDERED: FUROSEMIDE 100 MG/10 ML VIAL. IVP ONE (11:45)
[2020-04-21] MEDS ORDERED: fentaNYL PF VIAL 100 MCG/2 ML VIAL IV ONE (11:45)
[2020-04-21] MEDS ORDERED: CONTRAST GIVEN. MC PRN (11:45)
[2020-04-21] MEDS ORDERED: MIDAZOLAM HCL/PF 5 MG/5 ML VIAL. IV ONE (11:45)
[2020-04-21] MEDS ORDERED: LIDOCAINE 1% Multi-Dose 20 ML VIAL. INJ ONE (11:45)
[2020-04-21] MEDS ORDERED: IOHEXOL 300 MG/ML 100ML VIAL. IART ONE (11:45)
[2020-04-21] MEDS ORDERED: BIVALIRUDIN 250 MG VIAL. IV ONE ×2 (11:48→12:00)
[2020-04-21] MEDS ORDERED: TICAGRELOR 90 MG TABLET. ONE (12:29)
[2020-04-21] MEDS ORDERED: TICAGRELOR 90 MG TABLET. PO ONE (12:30)
[2020-04-21] MEDS ORDERED: NITROGLYCERIN SUBLINGUAL 0.4 MG BOTTLE OF 25. SL PRN (13:00)
[2020-04-21] MEDS ORDERED: ACETAMINOPHEN 325 MG TABLET. PO PRN (13:00)
--- NOTE | 2020-04-21 13:07 | CARD ---
MR#: [id number] Date of Study: 04/21/2020 Ordering Physician: RAZ SILVERIO, Referring Physician: RAZ SILVERIO, Tech: RT José Luis (R) APPROVED REPORT Technologist: Mo Hahn RT (R) Nurse: Lary Dewitt R.N. Procedure(s) performed: 1. Right and left heart catheterization, selective coronary angiography 2. Successful PCI/drug-eluting stent placement to the left anterior descending artery FL TIME: 20.2 MINS DOSE: 164 GYCM2 CONTRAST: 272 ML MODERATE SEDATION: 80 MINS HEART FAILURE CLASS 4 INDICATION The indication(s) include : Acute on chronic systolic heart failure, cardiomyopathy. [facility] Clinical Frailty Scale [facility] Clinical Frailty Scale: Mildly Frail Heart Failure Heart Failure: Yes If Yes, Newly Diagnosed: Yes If Yes, HF Type: Systolic If Yes, NYHA Class: Class III PROCEDURE NARRATIVE After explaining the risks, benefits and alternative options, informed consent was obtained from jaret ent. 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 20 cc of 2% lidocaine was infiltrated into the skin and subcutaneous tissues for local anesthesia. Arterial and venous accesses were obtained in the right common femoral artery and vein respectively and 6 and 5 Jordanian sheaths inserted. A 5 Jordanian [place] catheter was then advanced un manny fluoroscopy guidance and intracardiac pressures and oxygen saturations were measured. Subsequent ly, 6 Jordanian JL4 6 Jordanian JR4 catheters were used to perform selective angiography of the left and ri ght coronary arteries. LVEDP and transaortic gradients were measured. Left ventriculography was not performed since 2D echo earlier today showed LVEF 10 to 15% and also since his EDP was significantly elevated. The following findings were noted. FINDINGS A. RIGHT HEART CATHETERIZATION a. Intracardiac pressures: Mean right atrial pressure 22 mmHg, right ventricular pressure 81/15 mmHg , pulmonary artery pressure 75/38 mmHg with a mean PA pressure of 53 mmHg, significantly elevated cesar n pulmonary capillary wedge pressure of 39 mmHg. This is consistent with elevated left and right-marcial ed filling pressures, moderate pulmonary hypertension probably secondary to elevated left-sided filli ng pressures. b. Oxygen saturations: Right atrium 44.5%, pulmonary artery 45.2%, femoral artery sheath 97.8%. No evidence of intracardiac shunt. c. Cardiac output by Deondre method 2.7 L/min. B. LEFT HEART CATHETERIZATION a. Hemodynamics: Significantly elevated left ventricular end-diastolic pressure of 41 mmHg consisten t with acute on chronic systolic heart failure. No pullback gradient across the aortic valve. b. Coronary angiography: 1. The left main coronary artery arose from the left sinus of Valsalva, gave rise to the left anteri or descending and left circumflex arteries and showed 20% stenosis in the ostial segment and 20% sten osis in the distal segment. 2. The left anterior descending artery showed calcified 90 to 95% stenosis in the midsegment. The l ower division of the diagonal branch which is a small to medium caliber vessel showed 70% stenosis in the proximal segment. 3. The left circumflex artery did not show any significant stenosis. 4. The right coronary artery arose from the right sinus of Valsalva and showed 100% chronic total oc clusion in the midsegment with distal reconstitution of PDA/PLB with layp-vj-knuyy collaterals. INTERVENTION The left main coronary artery was engaged with 6 Jordanian XB 3.5 guide catheter. The stenosis in the m idsegment of the left anti-descending artery was crossed with a 0.014 inch [employer] pro-water guidewire. This was predilated with a 2.5 x 15 mm [employer] emerge balloon following which this was ibarra ccessfully treated with a 2.75 x 18 mm resolute [place] drug-eluting stent. Follow-up angiography showe d resolution of the stenosis to 0% with LUBA-3 distal flow. Patient tolerated the procedure well. H emostasis was achieved using Angio-Seal and manual compression. There were no immediate complication s. LUBA Flow LUBA Flow (Pre-Intervention): LUBA-2 LUBA Flow (Post-Intervention): LUBA-3 Conclusion 1. Severe two-vessel coronary disease including critical 90 to 95% stenosis involving the left anter ior descending artery and chronic total occlusion involving the right coronary artery. 2. Successful PCI/drug-eluting stent placement to the left anti-descending artery. 3. Significantly elevated left-sided and right-sided filling pressures. Moderate pulmonary hyperten frida. 4. No evidence of intracardiac shunt. Recommendations 1. Aspirin 81 mg daily 2. Ticagrelor 90 mg twice daily 3. Aggressive diuresis for acute on chronic systolic heart failure 4. Optimization of medical therapy for ischemic cardiomyopathy and repeat 2D echo in 3 months to abdelrahman luate the need for AICD implantation. Consider LifeVest upon discharge. Signed by : Shyam Arias, Electronically Approved : 04/21/2020 13:06:58
[2020-04-21] MEDS ORDERED: MORPHINE SULFATE 4 MG/ML VIAL. IM ONE (14:15)
[2020-04-21] MEDS ORDERED: MORPHINE SULFATE 4 MG/ML VIAL. IV ONE (14:15)
--- NOTE | 2020-04-21 15:33 | NUR ---
backhoe operator stated patient sat up before he was supposed to after heart cath. Patient sat up around 1330. Small amount of oozing noted on dressing & marked. Patient very anxious & not listening to RN. Patient pulling O2 off & moving constantly. IV Ativan & IV morphine administered. Refusing to lay flat. Patient currently up in chair with his children at bedside. Patient slightly a little more calm. Will continue to monitor.
[2020-04-21] MEDS ORDERED: ALBUTEROL SULFATE 2.5 MG/3 ML NEBU. NEB PRN (16:00)
[2020-04-21] MEDS: IPRATRPIUM/ALBUTEROL 0.5/2.5MG 3 ML NEBU. NEB SCH ×2 (16:06→20:32)
[2020-04-21] MEDS: BUDESONIDE 0.5 MG/2 ML NEBU. NEB SCH (20:32)
[2020-04-21] MEDS: ZOLPIDEM 5 MG TABLET. PO PRN (20:53)
[2020-04-21] MEDS ORDERED: ATORVASTATIN CALCIUM 40 MG TABLET. PO SCH (21:00)
[2020-04-22 03:00] VITALS: BP 136/97
[2020-04-22 07:00] VITALS: BP 135/90
[2020-04-22] MEDS: IPRATRPIUM/ALBUTEROL 0.5/2.5MG 3 ML NEBU. NEB SCH ×3 (07:49→15:46)
[2020-04-22] MEDS: BUDESONIDE 0.5 MG/2 ML NEBU. NEB SCH (07:49)
[2020-04-22] MEDS: ENOXAPARIN 40 MG/0.4 ML SYRINGE. SQ SCH (08:00)
[2020-04-22] MEDS ORDERED: ASPIRIN CHEWABLE 81 MG TABLET. PO SCH (08:00)
[2020-04-22] MEDS: METOPROLOL SUCC 24HR ER 100 MG TAB.ER.24H. PO SCH (08:54)
[2020-04-22] MEDS: TICAGRELOR 90 MG TABLET. PO SCH ×2 (08:55→16:26)
[2020-04-22] MEDS ORDERED: FUROSEMIDE 40 MG/4 ML VIAL. IVP SCH (09:00)
[2020-04-22] MEDS ORDERED: SPIRONOLACTONE 25 MG TABLET PO SCH (09:00)
[2020-04-22 11:00] VITALS: BP 111/70
--- NOTE | 2020-04-22 11:07 | PDOC ---
CARDIO Progress Notes Date and Time Date of Service 04/22/2020 Time of Evaluation 1045 Subjective Subjective: No Chest Pain, No shortness of breath, No Palpitations Vitals Vitals Vital Signs Date Time Temp Pulse Resp B/P (MAP) Pulse Ox O2 Delivery O2 Flow Rate FiO2 04/22/20 08:54 87 135/90 04/22/20 07:52 95 Nasal Cannula 2.0 04/22/20 07:00 98.2 18 98.2 Weight Weight [ ] Input and Output Intake and Output Intake and Output 04/22/20 07:00 Intake Total 600 ml Output Total 2150 ml Balance -1550 ml Intake Oral 600 ml Output Urine Total 2150 ml Physical Exam HEENT: Neck Supple W Full Motion Chest: Symmetric LUNGS: Other (diminished bases, O2 2LPM) Heart: RRR (SR), no murmurs Abdomen: Soft N/T, Other (obese) Extremities: No Calf Tenderness, Other (2-3+ bilateral Le pitting edema) Neurology: alert, oriented, follow commands Other Exams right groin arteriotomy site intact, no erythema, swelling, neurovascualr status to bilateral LE intact. Assessment Assessment 1. CAD: S/P PCI/DIPTI to LAD with chronic total occlusion to RCA 2. Severe ICM: NYHA 2, improved 3. COPD with continued tobaccoism 4. HTN: controlled 5. Acute on chronic diastolic/systolic CHF 6. Metabolic syndrome/obesity Recommendation 1. Lasix therapy. BMP and Mg today 2. 6 min walk today 3. ASA/brilinta 4. Stopped losartan in anticipation for entresto to start tomorrow. 5. Lifevest prior to DC. Reeval in 3 months for possible AICD 6. Secondary prevention measures. Cardiac rehab. HF education. dietitian consult. Smoking cessation Justicifation of Admission Dx: Justifications for Admission: Justification of Admission Dx: N/A ROSALIND LOVELACE APRN Apr 22, 2020 11:07
--- NOTE | 2020-04-22 12:04 | PDOC ---
[facility] PROGRESS NOTE Date of Service DOS: DATE: 04/22/20 TIME: 11:56 Chief Complaint Chief Complaint A/P: Lower extremity edema multi-factorial possibly due to acute diastolic CHF, will consult cardiology continue IV Lasix continue beta-jayda check lipids HTN emergency - with acute CHF, restart home medications Dyspnea with acute CHF - improved after initiating IV diuresis NSTEMI - with CAD - s/p DIPTI placement to LAD and chronic total occlusive disease of RCA COPD - on prn albuterol Tobacco abuse - previously given chantix, he is trying to quit smoking Prediabetes - A1c 5.9. Should be on metformin 5 mg twice daily therapy once his cardiac issues have been resolved. FEN - Cardiac diet PPX - lovenox FULL CODE Dispo - inpatient History of Present Illness History of Present Illness Mr Zuñiga is a 54 yo M w/ PMHx HTN who presented to ER due to bilateral lower extremity swelling that spread to his abdominal area, having trouble breathing with exertion, not able to sleep in his bed due to having trouble breathing. Symptoms are progressive over the past 10 days prior to ED presentation. Patient is suspected to have acute pulmonary edema, his oxygen saturation is about 92% on room air tachypneic, patient was given 40 mg Lasix IV, he had been diuresis well in the ER but his oxygen saturation is still low in the 92-94 % on room air. Labs significant for INR 1.2, glucose 119, BNP 1171, troponin 0 0.033. Blood pressure 136/125. EKG appears to have heart rate of 94 bpm, sinus rhythm, no ST segment elevation. CXR revealed cardiomegaly and bilateral atelectasis, bilateral venous Dopplers did not reveal any DVT. 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 He was given a prescription for Chantix at that time and metoprolol 100 mg XL and losartan 50 mg daily and was planning on follow-up in the near future. Patient admitted to hospital for cardiology evaluation and further treatment. 04/21: BP a bit better controlled, however his troponin continue to increase to 0.065. K3.6. To cardiac cath - severe two-vessel coronary disease including critical 90 to 95% stenosis involving the left anterior descending artery and chronic total occlusion involving the right coronary artery. Successful PCI/drug-eluting stent placement to the left anti-descending artery. Significantly elevated left-sided and right-sided filling pressures. Moderate pulmonary hypertension. No evidence of intracardiac shunt. Still on O2 today. He is distressed about having to wear a LifeVest and really wants to go home as he feels improved. Vitals/I&O Vitals/I&O: Vital Signs Date Time Temp Pulse Resp B/P (MAP) Pulse Ox O2 Delivery O2 Flow Rate FiO2 04/22/20 11:23 98 Nasal Cannula 2.0 04/22/20 11:00 97.9 79 18 111/70 (84) 97.9 I & O 04/21/20 04/21/20 04/22/20 15:00 23:00 07:00 Intake Total 600 ml Output Total 500 ml 1000 ml 650 ml Balance -500 ml -400 ml -650 ml Physical Exam General: Alert, Oriented X3, Cooperative, No acute distress Heart: Regular rate Abdomen: Soft, Other (ascites ) Extremities: Other (2+ bilateral LE edema ) Skin: No significant lesion Assessment and Plan Assessmemt and Plan Problems Medical Problems: (1) Acute dyspnea Status: Acute (2) Anasarca Status: Acute Comment Review of Relevant I have reviewed the following items ankit (where applicable) has been applied. Medications: Current Medications Medications (Trade) Dose Ordered Sig/Ariana Route PRN Reason Start Time Stop Time Status Last Admin Dose Admin Bivalirudin (Angiomax) 250 mg 1X ONCE IV 04/21/20 12:00 04/21/20 12:01 DC 04/21/20 12:35 Ticagrelor (Brilinta) 180 mg 1X ONCE PO 04/21/20 12:30 04/21/20 12:31 DC 04/21/20 12:39 Atorvastatin Calcium (Lipitor) 40 mg QHS PO 04/21/20 21:00 04/21/20 20:53 Ticagrelor (Brilinta) 90 mg BID PO 04/22/20 09:00 04/22/20 08:55 Spironolactone (Aldactone) 25 mg DAILY PO 04/22/20 09:00 04/22/20 08:53 Acetaminophen (Tylenol) 650 mg PRN Q6HRS PRN PO TEMP > 100.3'F 04/21/20 13:00 04/21/20 13:38 Aspirin (Aspirin Chewable) 81 mg DAILYWBKFT PO 04/22/20 08:00 04/22/20 09:25 Furosemide (Lasix) 40 mg DAILY IVP 04/22/20 09:00 04/22/20 08:53 Morphine Sulfate (Morphine Sulfate) 4 mg 1X ONCE IV 04/21/20 14:15 04/21/20 14:17 DC 04/21/20 14:15 Albuterol/ Ipratropium (Duoneb) 3 ml RTQID NEB 04/21/20 16:00 04/22/20 11:21 Budesonide (Pulmicort) 0.5 mg RTBID NEB 04/21/20 20:00 04/22/20 07:49 Justicifation of Admission Dx: Justifications for Admission: Justification of Admission Dx: N/A SOURAV BAUTISTA MD Apr 22, 2020 12:04
--- NOTE | 2020-04-22 13:18 | NUR ---
SS following up with discharge planning. Pt is currently requiring oxygen. Six minute walk ordered. Order for Life Vest received as well. SS phoned and faxed order for Life Vest to Demetria at [facility], ; fax [phone]. Pt is self pay. Carmela from [employer] met with pt and completed Medical Application and submitted today. Demetria at [facility] faxed SS a financial form that family completed. SS faxed completed form to Demetria at [facility]. Demetria notified SS that once the form is processed through there financial department she will notify SS and will give a number for the family to call. SS was notified that pt will need to pay $250 up front for Life Vest which is refundable once Medicaid is active. SS met with pt and pt's family in room. Physician present. SS discussed cost of Life Vest and private pay cost of oxygen of approximately $150 per month until Medicaid is active. Pt's daughter discussed with pt, friends, and family. Pt's family reported that they will pay privately for oxygen and provide payment for Life Vest. SS notified Demetria at [facility]. SS currently awaiting return call from [facility] and results of 6 minute walk and will proceed accordingly.
[2020-04-22 13:47] LABS: CALCIUM 9.4 mg/dL (8.5-10.1); CREATININE 0.9 mg/dL (0.7-1.3); GFR 87.9; MAGNESIUM 2.1 mg/dL (1.8-2.4); POTASSIUM 3.7 mmol/L (3.5-5.1)
[2020-04-22] MEDS ORDERED: ATOR40TA59 PO (14:17)
[2020-04-22] MEDS ORDERED: LOSA-73 PO (14:17)
[2020-04-22] MEDS ORDERED: SPIR25TA PO (14:17)
[2020-04-22] MEDS ORDERED: FURO40TA4 PO (14:17)
[2020-04-22] MEDS ORDERED: CLOP75TA PO (14:17)
[2020-04-22] MEDS ORDERED: METO-247 PO (14:17)
--- NOTE | 2020-04-22 14:55 | PDOC3 ---
Discharge Summary Visit Information Date of Admission: Apr 19, 2020 Date of Discharge: Apr 22, 2020 Admitting Diagnosis: Acute CHF Final Diagnosis Problems Medical Problems: (1) Acute dyspnea Status: Acute (2) Anasarca Status: Acute Brief Hospital Course Allergies Allergies Coded Allergies Type Severity Reaction Last Updated Verified lisinopril Allergy Severe SWELLING 04/19/20 Yes Vital Signs Vital Signs Date Time Temp Pulse Resp B/P (MAP) Pulse Ox O2 Delivery O2 Flow Rate FiO2 04/22/20 11:23 98 Nasal Cannula 2.0 04/22/20 11:00 97.9 79 18 111/70 (84) 97.9 Lab Results Laboratory Tests Test 04/20/20 16:30 04/21/20 04:20 04/21/20 10:20 04/22/20 13:20 Urine Opiates Screen Neg (NEG) Urine Methadone Screen Neg (NEG) Urine Barbiturates Neg (NEG) Urine Phencyclidine Screen Neg (NEG) Urine Amphetamine/Methamphetamine Neg (NEG) Urine Benzodiazepines Screen Neg (NEG) Urine Cocaine Screen Neg (NEG) Urine Cannabinoids Screen Neg (NEG) Urine Ethyl Alcohol Neg (NEG) Sodium Level 142 mmol/L (136-145) 144 mmol/L (136-145) Potassium Level 3.6 mmol/L (3.5-5.1) 3.7 mmol/L (3.5-5.1) Chloride Level 104 mmol/L (98-107) 104 mmol/L (98-107) Carbon Dioxide Level 30 mmol/L (21-32) 30 mmol/L (21-32) Anion Gap 8 (6-14) 10 (6-14) Blood Urea Nitrogen 21 mg/dL (8-26) 21 mg/dL (8-26) Creatinine 0.9 mg/dL (0.7-1.3) 0.9 mg/dL (0.7-1.3) Estimated GFR (Cockcroft-Gault) 87.9 87.9 Glucose Level 106 mg/dL (70-99) 123 mg/dL (70-99) Calcium Level 9.0 mg/dL (8.5-10.1) 9.4 mg/dL (8.5-10.1) Magnesium Level 1.9 mg/dL (1.8-2.4) 2.1 mg/dL (1.8-2.4) Troponin I Quantitative 0.065 ng/mL (0.000-0.055) 0.053 ng/mL (0.000-0.055) Laboratory Tests Test 04/22/20 13:20 Sodium Level 144 mmol/L (136-145) Potassium Level 3.7 mmol/L (3.5-5.1) Chloride Level 104 mmol/L (98-107) Carbon Dioxide Level 30 mmol/L (21-32) Anion Gap 10 (6-14) Blood Urea Nitrogen 21 mg/dL (8-26) Creatinine 0.9 mg/dL (0.7-1.3) Estimated GFR (Cockcroft-Gault) 87.9 Glucose Level 123 mg/dL (70-99) Calcium Level 9.4 mg/dL (8.5-10.1) Magnesium Level 2.1 mg/dL (1.8-2.4) Brief Hospital Course Mr Zuñiga is a 54 yo M w/ PMHx HTN who presented to ER due to bilateral lower extremity swelling that spread to his abdominal area, having trouble breathing with exertion, not able to sleep in his bed due to having trouble breathing. Symptoms are progressive over the past 10 days prior to ED presentation. Patient is suspected to have acute pulmonary edema, his oxygen saturation is about 92% on room air tachypneic, patient was given 40 mg Lasix IV, he had been diuresis well in the ER but his oxygen saturation is still low in the 92-94 % on room air. Labs significant for INR 1.2, glucose 119, BNP 1171, troponin 0 0.033. Blood pressure 136/125. EKG appears to have heart rate of 94 bpm, sinus rhythm, no ST segment elevation. CXR revealed cardiomegaly and bilateral atelectasis, bilateral venous Dopplers did not reveal any DVT. 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 He was given a prescription for Chantix at that time and metoprolol 100 mg XL and losartan 50 mg daily and was planning on follow-up in the near future. Patient admitted to hospital for cardiology evaluation and further treatment. 04/21: BP a bit better controlled, however his troponin continue to increase to 0.065. K3.6. To cardiac cath - severe two-vessel coronary disease including critical 90 to 95% stenosis involving the left anterior descending artery and chronic total occlusion involving the right coronary artery. Successful PCI/drug-eluting stent placement to the left anti-descending artery. Significantly elevated left-sided and right-sided filling pressures. Moderate pulmonary hypertension. No evidence of intracardiac shunt. No longer on O2, 6 minute walk shows no needs. He is distressed about having to wear a LifeVest and really wants to go home as he feels improved. Echo: Left ventricle systolic function is severely impaired. The Ejection Fraction is 10-15%. Mild aortic regurgitation. Mild mitral regurgitation. Mild tricuspid regurgitation. There is moderate pulmonary hypertension. The PA pressure was estimated at 58 mmHg. There is no evidence of significant pericardial effusion. Based on echo findings it was made abundantly clear compared to the patient's fianc need to be fitted for a LifeVest prior to discharge as he is high risk for from an arrhythmia given his poor systolic function. He will need follow-up echo to assess for AICD placement. Problem list: Cardiomyopathy - ischemic with EF 10-15%, needs lifevest and eventual AICD placement Acute combined systolic and diastolic CHF, will consult cardiology continue Lasix continue beta-jayda, aldactone, statin, ASA, plavix HTN emergency - with acute CHF, restart home medications Dyspnea with acute CHF - improved after initiating IV diuresis NSTEMI - with CAD - s/p DIPTI placement to LAD and chronic total occlusive disease of RCA COPD - on prn albuterol Tobacco abuse - previously given chantix, he is trying to quit smoking Prediabetes - A1c 5.9. Should be on metformin 5 mg twice daily therapy once his cardiac issues have been resolved. Greater than 30 minutes spent on d/c home Discharge Information Condition at Discharge: Improved Follow Up: Weeks Disposition/Orders: D/C to Home Scheduled Aspirin (Aspirin) 325 Mg Tablet, 1 TAB PO DAILY for ppx, #30 Ref 5 (Reported) Entered as Reported by: ZULEYKA MALIK on 04/19/20 705 Last Taken: Unknown Dose on 04/19/20 Last Action: Continued on 04/20/20 0742 by SOURAV BAUTISTA MD Atorvastatin Calcium (Atorvastatin Calcium) 40 Mg Tablet, 40 MG PO QHS for CAD/HLD for 90 Days, #90 Ref 3 Prescribed by: SOURAV BAUTISTA MD on 04/22/201416 Clopidogrel Bisulfate (Clopidogrel) 75 Mg Tablet, 1 TAB PO DAILY for CAD for 90 Days, #90 Ref 3 Prescribed by: SOURAV BAUTISTA MD on 04/22/201416 Furosemide (Furosemide) 40 Mg Tablet, 1 TAB PO DAILY for CHF for 90 Days, #90 Ref 3 Prescribed by: SOURAV BAUTISTA MD on 04/22/207 Losartan Potassium (Losartan Potassium) 50 Mg Tablet, 50 MG PO DAILY for HYPE RTENSION for 90 Days, #90 Ref 3 Prescribed by: SOURAV BAUTISTA MD on 04/22/201416 Metoprolol Succinate (Metoprolol Succinate ( Xl )) 100 Mg Tab.er.24h, 1 TAB PO DAILY for heart health,blood pressure for 90 Days, #90 Ref 3 Prescribed by: SOURAV BAUTISTA MD on 04/22/207 Multivitamin (Multi Vitamin Daily) 1 Each Tablet, 1 TAB PO DAILY for supplement for 30 Days, #30 Ref 0 (Reported) Entered as Reported by: MARIANO THEODORE on 04/20/201344 Last Action: New Order on 04/20/201344 by MARIANO THEODORE Pantoprazole Sodium (Protonix ) 40 Mg Tablet.dr, 40 MG PO DAILYAC for GERD, (Reported) Entered as Reported by: MARIANO THEODORE on 04/20/201344 Last Action: New Order on 04/20/201344 by MARIANO THEODORE Spironolactone (Aldactone) 25 Mg Tablet, 25 MG PO DAILY for CHF for 90 Days, #90 Ref 3 Prescribed by: SOURAV BAUTISTA MD on 04/22/201416 Varenicline Tartrate (Chantix) 0.5 Mg Tablet, 0.5 MG PO DIRECTED for smoking cessation, (Reported) 0.5 MG PO DAILY X3 DAY, 0.5 MG PO BID X4 DAY, 1 MG PO BID UNTIL END OF TREATMENT Entered as Reported by: MARIANO THEODORE on 04/20/201344 Last Action: New Order on 04/20/201344 by MARIANO THEODORE Justicifation of Admission Dx: Justifications for Admission: Justification of Admission Dx: N/A SOURAV BAUTISTA MD Apr 22, 2020 14:54
[2020-04-22 15:00] VITALS: BP 135/84
[2020-04-22] MEDS ORDERED: FUROSEMIDE 40 MG/4 ML VIAL. IVP ONE (15:45)
[2020-04-22] MEDS ORDERED: POTASSIUM CHLORIDE 20 MEQ TABLET.ER. PO ONE (15:45)
[2020-04-22] MEDS ORDERED: POTA10TA6 PO (16:00)
--- NOTE | 2020-04-22 17:45 | NUR ---
Discharge instructions given. [facility] Lifevest will meet patient at home per patient request. Patient understood the risks being without the life vest. PIV and monitor removed. Escorted patient per ambulation into a private vehicle.
[2020-04-23] MEDS ORDERED: MAGNESIUM OXIDE 400 MG TABLET PO SCH (09:00)
== END 2020-04-22 17:35 | disposition home or self-care (01) | DRG 246 ==
LOC: ER 14:23 → 2 SOUTH 18:00
PROVIDERS: ADMIT Internal Medicine; ATTEND Internal Medicine
PROC: 4A023N8 Measurement of Cardiac Sampling and Pressure, Bilateral, Percutaneous Approach (ICD-10-PCS; principal; 2020-04-21)
PROC: 027034Z Dilation of Coronary Artery, One Artery with Drug-eluting Intraluminal Device, Percutaneous Approach (ICD-10-PCS; 2020-04-21)
PROC: B2111ZZ Fluoroscopy of Multiple Coronary Arteries using Low Osmolar Contrast (ICD-10-PCS; 2020-04-21)
DX: I21.4 Non-ST elevation (NSTEMI) myocardial infarction (principal); I50.43 Acute on chronic combined systolic (congestive) and diastolic (congestive) heart failure; J96.00 Acute respiratory failure, unspecified whether with hypoxia or hypercapnia; I16.1 Hypertensive emergency; J98.11 Atelectasis; E66.9 Obesity, unspecified; E78.5 Hyperlipidemia, unspecified; E88.81 Metabolic syndrome and other insulin resistance; F17.210 Nicotine dependence, cigarettes, uncomplicated; I11.0 Hypertensive heart disease with heart failure; I25.10 Atherosclerotic heart disease of native coronary artery without angina pectoris; I25.5 Ischemic cardiomyopathy; I27.20 Pulmonary hypertension, unspecified; J44.9 Chronic obstructive pulmonary disease, unspecified; K21.9 Gastro-esophageal reflux disease without esophagitis; M19.90 Unspecified osteoarthritis, unspecified site; Z82.49 Family history of ischemic heart disease and other diseases of the circulatory system; Z83.3 Family history of diabetes mellitus; Z95.5 Presence of coronary angioplasty implant and graft; Z68.35 Body mass index [BMI] 35.0-35.9, adult
CPT/HCPCS: 36415; 71045; 80048; 80053; 80061; 80307; 83036; 83735; 83880; 84443; 84484; 85025; 85610; 85730; 92928; 93005; 93460; 93970; 94618; 94640; 96374; 99152; 99153; 99285; 99406; C1725; C1760; C1769; C1773; C1874; C1887; C1892; C8929; G0269; J0583; J1644; J1650; J1940; J2060; J2250; J2270; J3010; J3475; J3490; Q9956; Q9967; C1771; G0378; J7626

== ENCOUNTER 2021-02-10 14:29 | Emergency (ER) | payer OTHER ==
[~2021-02-10] VITALS: Ht 177.8 cm; Wt 110.5 kg
[~2021-02-10 14:29] MED LIST: ASPI325T8 PO; ATOR40TA59 PO; CLOP75TA PO; FURO40TA4 PO; LOSA-73 PO; METO-247 PO; MULT-245 PO; PANT40TA77 PO; POTA10TA6 PO; SPIR25TA PO; VARE0.5T PO
[2021-02-10 15:45] VITALS: BP 125/76
[2021-02-10] MEDS ORDERED: predniSONE 20 MG TABLET PO ONE (15:45)
[2021-02-10] MEDS ORDERED: PRED50TA PO (15:53)
--- NOTE | 2021-02-10 15:53 | ED.ADGEN ---
Past Medical History Past Medical History: Hypertension Past Surgical History: Other Additional Past Surgical Histo: UTI SURGERY, Smoking Status: Current Every Day Smoker Alcohol Use: Occasionally General Adult EDM: Chief Complaint: ALLERGIC REACTION HPI: HPI: Patient is a 55-year-old male who arrives ambulatory to the emergency department complaining of pruritus in addition to swelling and erythema on the palms of his hands. Patient reports that he began taking 2 new medications on the of this month. Patient began taking both atorvastatin and pantoprazole and before Monday was not having any problems. Patient reports however on Monday he began experiencing itching of his hands, extremities and ears. Patient also reports to some swelling of his tongue however he took Benadryl and that has not been problematic since that time. Patient had a similar reaction to lisinopril and has not since taken that medication. The patient has experienced the most problem with his hands and that he reports they are slightly swollen and stiff. Despite this, the patient has not had any shortness of air. He further denies any pain and reports that no one in his family has had any similar symptoms. The patient also denies any new exposures otherwise. He is awake, alert and nontoxic-appearing. Review of Systems: Review of Systems: Constitutional: Denies fever or chills. [] Eyes: Denies change in visual acuity. [] HENT: Reports tongue swelling. Denies nasal congestion or sore throat. [] Respiratory: Denies cough or shortness of breath. [] Cardiovascular: Denies chest pain or edema. [] GI: Denies abdominal pain, nausea, vomiting, bloody stools or diarrhea. [] : Denies dysuria. [] Musculoskeletal: Reports extremity swelling (hands). Denies back pain or joint pain. [] Integument: Reports rash with pruritus. Reports erythema of hands [] Neurologic: Denies headache, focal weakness or sensory changes. [] Endocrine: Denies polyuria or polydipsia. [] Lymphatic: Denies swollen glands. [] Psychiatric: Denies depression or anxiety. [] Current Medications: Current Medications Medications (Trade) Dose Ordered Sig/Ariana Start Time Stop Time Status Last Admin Dose Admin Prednisone (Prednisone) 60 mg 1X ONCE 02/10/21 15:45 02/10/21 15:46 DC 02/10/21 15:55 60 MG Allergies: Allergies: Allergies Coded Allergies Type Severity Reaction Last Updated Verified lisinopril Allergy Severe SWELLING 04/19/20 Yes Physical Exam: PE: Constitutional: Well developed, well nourished, no acute distress, non-toxic appearance. [] HENT: Normocephalic, atraumatic, bilateral external ears normal, oropharynx moist, no oral exudates, nose normal. [] Eyes: PERRLA, EOMI, conjunctiva normal, no discharge. [] Neck: Normal range of motion, no tenderness, supple, no stridor. [] Cardiovascular:Heart rate regular rhythm, no murmur [] Lungs & Thorax: Bilateral breath sounds clear to auscultation [] Abdomen: Bowel sounds normal, soft, no tenderness, no masses, no pulsatile masses. [] Skin: Patient has very mild erythema of the palms of his hands with minimal soft tissue swelling. This does appear to be allergic in nature. There is blanching present without pain upon palpation. There are no other cutaneous abnormalities otherwise. Warm, dry, no erythema, no rash. [] Back: No tenderness, no CVA tenderness. [] Extremities: Patient has minimal soft tissue edema of the palms of his hands bilaterally. No tenderness, no cyanosis, no clubbing, ROM intact. [] Neurologic: Alert and oriented X 3, normal motor function, normal sensory function, no focal deficits noted. [] Psychologic: Affect normal, judgement normal, mood normal. [] Current Patient Data: Vital Signs: Vital Signs Date Time Temp Pulse Resp B/P (MAP) Pulse Ox O2 Delivery O2 Flow Rate FiO2 02/10/21 15:45 98.4 66 18 125/76 (92) 96 Room Air 98.4 EKG: EKG: [] Heart Score: C/O Chest Pain: No Risk Factors: Risk Factors: DM, Current or recent (<one month) smoker, HTN, HLP, family history of CAD, obesity. Risk Scores: Score 0 - 3: 2.5% MACE over next 6 weeks - Discharge Home Score 4 - 6: 20.3% MACE over next 6 weeks - Admit for Clinical Observation Score 7 - 10: 72.7% MACE over next 6 weeks - Early Invasive Strategies Radiology/Procedures: Radiology/Procedures: [] Course & Med Decision Making: Course & Med Decision Making Pertinent Labs and Imaging studies reviewed. (See chart for details) [] Dragon Disclaimer: Shi Disclaimer: This electronic medical record was generated, in whole or in part, using a voice recognition dictation system. Departure Departure Impression: Primary Impression: Allergic reaction Disposition: HOME / SELF CARE / HOMELESS Condition: STABLE Referrals: GIO BERMUDEZ MD (PCP) Patient Instructions: Allergies, Generic, Angioedema Scripts Prednisone (PREDNISONE) 50 Mg Tablet 1 TAB PO DAILY for 5 Days, #5 TAB Prov: LANG FONSECA DO 02/10/21 LANG FONSECA DO February 10, 2021 15:53
== END 2021-02-10 15:59 | disposition home or self-care (01) ==
LOC: ER 14:29
DX: T78.40XA Allergy, unspecified, initial encounter (principal); I10 Essential (primary) hypertension; F17.200 Nicotine dependence, unspecified, uncomplicated; Z88.6 Allergy status to analgesic agent
CPT/HCPCS: 99283; J7512